=== PATIENT | male | born 1935 | race Caucasian/White ===

== ENCOUNTER 2018-01-24 13:56 | Inpatient (IN) ==
--- OUTSIDE RECORDS SUMMARY | 2018-01-24 14:21 | External Medical Summary ---
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
--- OUTSIDE RECORDS SUMMARY | 2018-01-24 14:22 | External Medical Summary ---
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
--- OUTSIDE RECORDS SUMMARY | 2018-01-24 14:22 | External Medical Summary ---
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
--- OUTSIDE RECORDS SUMMARY | 2018-01-24 14:22 | External Medical Summary ---
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 [id number] impairment ALLERGIES Unknown Allergies SOCIAL HISTORY No smoking Hx information available PLAN OF CARE Activity Details Follow Up prn Reason: Pending Test Urine Culture #[id number] VITAL SIGNS MEDICATIONS Unknown Medications RESULTS Name Result Date Reference Range CBC 2017-04-23 WBC 6.7 4.0-10.0 NE% 68.9 42.2-75.2 NE# 4.6 1.4-6.5 LY% 17.7 20.5-51.1 LY# 1.2 1.2-3.4 MO% 9.7 1.7-9.3 MO# 0.7 0.1-0.6 EO% 3.0 0.0-3.0 EO# 0.2 0.0-0.2 BA% 0.6 0.0-1.0 BA# 0.0 0.0-0.1 RBC 4.80 4.50-5.70 HGB 14.1 13.8-17.0 HCT 43.4 39.0-49.0 MCV 90.4 80.0-94.0 MCH 29.4 26.0-32.0 MCHC 32.5 32.0-36.0 RDW 12.8 11.5-15.5 PLT 227 130-400 MPV 9.4 9.0-12.1 SED RATE 2017-04-23 SED RATE 2 0-20 COMPREHENSIVE CHEM PROFILE 2017-04-23 GLUCOSE 123 60-99 BUN 19 8-23 CREATININE 0.9 0.5-1.2 CREATININE 0.9 0.5-1.2 eGFR If Am 98 >60 eGFR If Non Am 81 >60 TOTAL BILI 1.94 0.00-1.00 SODIUM 138 133-145 POTASSIUM 4.5 3.3-5.1 CHLORIDE 99 96-108 CO2 26 23-31 CALCIUM 9.4 8.7-10.3 AST/SGOT 19 5-40 ALT/SGPT 15 5-40 ALK PHOS 56 34-114 TOTAL PROTEIN 7.2 5.9-8.4 ALBUMIN 4.6 3.2-5.2 GLOBULIN 2.6 2.0-4.4 LIPID PROFILE 2017-04-23 CHOLESTEROL 172 50-200 TRIGLYCERIDE 101 30-150 HDL-DIRECT 62 35-55 LDL-DIRECT 107 0-99 CHOL/HDL 2.8 4.0-6.7 CRP 2017-04-23 CRP <0.5 0.0-5.0 Urine Dipstick/Microscopic for Symptoms 2017-04-23 COLOR D.YEL YELLOW-STRAW CLARITY CLEAR CLEAR LEUKOCYTES NEG NEGATIVE NITRITES NEG NEGATIVE pH 6 5-8 PROTEIN NEG NEGATIVE GLUCOSE 50 NEG KETONES NEG NEGATIVE UROBILINOGEN NORM 0 - 1.0 BILIRUBIN NEG NEGATIVE BLOOD NEG NEGATIVE SPEC GRAVITY 1.022 1.016-1.022 WBC 0-1 0-5/HPF RBC 0 0-2/HPF SQUAMOUS EPITH OCCASIONAL FEW/HPF BACTERIA 0 NONE/HPF CRYSTALS 0 NONE/HPF MUCOUS 0 NONE/HPF OTHER CASTS 0 NONE/LPF TSH Reflex to Free T4 2017-04-23 TSH 1.51 0.40-5.00 PROCEDURES Procedure Date Ordered Related Diagnosis Body Site CBC Apr 23, 2017 COMP PROFILE Apr 23, 2017 C REACTIVE PROTEIN Apr 23, 2017 SED RATE AUTOMA Apr 23, 2017 TSH Apr 23, 2017 LIPID PROFILE Apr 23, 2017 URINALYSIS Apr 23, 2017 URINE CULTURE Apr 23, 2017 IMMUNIZATIONS No Known Immunizations
--- OUTSIDE RECORDS SUMMARY | 2018-01-24 14:22 | External Medical Summary ---
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 [id number] impairment ALLERGIES No Known Allergies SOCIAL HISTORY Never Assessed PLAN OF CARE Activity Details Follow Up 3 Months Reason: VITAL SIGNS Weight 166 lbs 2017-08-22 Height 67 in 2017-08-22 BMI 26.00 kg/m2 2017-08-22 Blood pressure systolic 132 mm Hg 2017-08-22 Blood pressure diastolic 82 mm Hg 2017-08-22 MEDICATIONS Medication Instructions Dosage Frequency Start End Date Duration Status Date Aricept 5 mg Orally Once a 1 tablet at 24h Apr, DAYS Active day bedtime 2016 Namenda XR 14 Orally Once a 1 capsule 24h Apr, DAYS Active MG day 2016 RESULTS No Results PROCEDURES No Known procedures IMMUNIZATIONS No Known Immunizations MEDICAL (GENERAL) HISTORY Type Description Date Surgical History Herniorraphy Surgical History Colonoscopy
--- NOTE | 2018-01-24 14:23 | Emergency Department Report ---
General Adult HPI - General Chief complaint: Medical Clearance Stated complaint: [facility] Time Seen by Provider: 01/24/18 14:14 Source: patient, family Mode of arrival: ambulatory Limitations: no limitations - History of Present Illness HPI narrative: 82-year-old male presents to the emergency department with the chief complaint of a behavioral disturbance. Patient has been having gradual increasing behavioral disturbances over the past several weeks. Patient denies any pain or discomfort. Patient has had volatile behavior. Patient's family has contacted [facility] in order to help adjust the patient's medications and possibly improve his behavior. He was at home when his symptoms began. Symptoms have been persistent in nature since onset. No other complaints or associated symptoms. - Related Data Home Medications Medication Instructions Recorded Confirmed Donepezil [Aricept 5 mg] 5 mg PO HS 01/24/18 01/24/18 Memantine HCl [Namenda Xr] 14 mg PO DAILY 01/24/18 01/24/18 Allergies Allergy/AdvReac Type Severity Reaction Status Date / Time No Known Allergies Allergy Verified 01/24/18 14:21 Review of Systems Constitutional: Denies: fever, chills Eyes: Denies: eye pain, vision change ENT: Denies: ear pain, throat pain Cardiovascular: Denies: chest pain, palpitations Respiratory: Denies: cough, dyspnea Gastrointestinal: Denies: abdominal pain, nausea, vomiting, diarrhea Genitourinary: Denies: urgency, dysuria Musculoskeletal: Denies: back pain, arthralgia Integumentary: Denies: erythema, rash Neurological: Denies: headache, numbness Psychiatric: Denies: anxiety, depression, suicidal thoughts, homicidal thoughts Endocrine: Denies: polydipsia, polyuria Hematological/Lymphatic: Denies: easy bruising, lymphadenopathy Allergic/Immunologic: Denies: facial swelling, urticaria PFSH Patient Stated Medical History Dementia Yes Surgical History: Denied by patient. Family History: Reviewed and Noncontributory. - Social History Smoking status: Former smoker Substance use type: does not use Alcohol intake frequency: does not drink Physical Exam - Limitations Limitations: no limitations - General General appearance: alert, in no apparent distress - Normal Exams: Head:: Normocephalic without trauma Eyes:: Pupils are PERRLA w/ EOMI, No scleral icterus, irritation, or foreign bodies noted ENMT:: No facial trauma, nasal exudates, pharyngeal erythema, or exudates are noted Dental: No fractured, loose, or missing teeth noted Neck:: Full range of motion, without adenopathy, JVD, bruits or thyromegaly Chest/Respirations:: Clear all pugh, with good airflow, and symmetry bilaterally Cardiovascular:: Regular rate and rhythm, without murmur or gallop, Pulses 2+ all extremities, capillary refill, <2 seconds all extremities Abdomen:: Bowel sounds positive, soft, non-tender, non-distended, no hepatosplenomegaly, masses or bruits noted Lymphatic:: No lymphadenopathy, or lymphedema noted Musculoskeletal:: No tenderness, or deformity noted, good range of motion, all extremities Integumentary:: No rashes, hives, or bruising noted, hair and nails, without abnormality Neurological:: Patient is alert, and oriented, cranial nerves, motor/sensory/ cerebellar, exams w/o gross deficits, to observation Course Vital Signs Temperature 98.6 F 01/24/18 13:57 Pulse Rate 84 01/24/18 13:57 Respiratory Rate 18 01/24/18 13:57 Blood Pressure 162/77 H 01/24/18 13:57 Pulse Oximetry 96 01/24/18 13:57 Temperature 97.5 F 01/24/18 20:10 Pulse Rate 83 01/24/18 20:10 Respiratory Rate 18 01/24/18 20:10 Blood Pressure 155/86 H 01/24/18 20:10 Pulse Oximetry 98 01/24/18 20:10 Medical Decision Making - [facility] Narrative Medical decision making narrative: Patient is medically clear in the emergency department for further evaluation and treatment and a psychiatric facility. Patient is accepted to [facility] by Dr. Jami Holm. No further orders from accepting physician is in agreement with the current plan of management. Patient is admitted to [facility] in improved condition. Patient and family are in agreement with the current plan of management. - Differential Diagnosis depression, anxiety, dementia, metabolic disorder - Lab Data Result diagrams: 01/24/18 14:30 01/24/18 14:30 Lab Results 01/24/18 01/24/18 01/24/18 Range/Units 14:30 14:30 14:53 WBC 6.2 (4.5-11.0) T/MM3 RBC 4.65 (4.50-5.90) M/MM3 Hgb 13.7 (13.5-17.5) GM/DL Hct 42.7 (41-53) % MCV 91.8 (80-100) UM3 MCH 29.5 (26-34) UUG MCHC 32.1 (31-37) GM/DL RDW Std Deviation 43.3 (36.9-50.2) FL Plt Count 181 (130-400) T/MM3 MPV 9.5 (9.4-12.4) UM3 Immature Gran % (Auto) 0.2 (0.0-0.5) % Neut % (Auto) 67.3 H (33-66) % Lymph % (Auto) 21.2 L (23-45) % [place] % (Auto) 7.4 (0-9.0) % Eos % (Auto) 2.9 (0-4) % Baso % (Auto) 1.0 (0-2) % Neut # (Auto) 4.2 (1.8-7.7) T/MM3 Lymph # (Auto) 1.3 (1-4.8) T/MM3 [place] # (Auto) 0.5 (0-0.8) T/MM3 Eos # (Auto) 0.2 (0-0.5) T/MM3 Baso # (Auto) 0.1 (0-0.2) T/MM3 Abs Immat Gran (auto) 0.01 (0.00-0.03) T/MM3 Turbidity < 20 (0-20) Sodium 144 (134-144) MEQ/L Potassium 3.9 (3.6-5) MEQ/L Chloride 104 (98-107) MEQ/L Carbon Dioxide 25 (22-30) MEQ/L Anion Gap 15 (5-15) meq/L BUN 18.0 (9-20) MG/DL Creatinine 1.1 (0.8-1.5) mg/dL GFR Calculation 64 BUN/Creatinine Ratio 16 (6-26) RATIO Glucose 97 (75-110) MG/DL Calculated Osmolality 279 (261-280) MOSM/KG Calcium 9.2 (8.4-10.2) MG/DL Total Bilirubin 1.50 H (0.20-1.30) MG/DL Icterus Index < 2 (0-7) AST 23 (17-59) U/L ALT 19 (1-50) U/L Alkaline Phosphatase 52 (38-126) U/L Troponin I < 0.012 (0-0.12) ng/ml Total Protein 6.9 (6.3-8.2) g/dL Albumin 4.4 (3.5-5.0) g/dL Globulin 2.5 (2.4-3.6) G/DL Albumin/Globulin Ratio 1.8 (1.1-2.2) RATIO Specimen Hemolysis < 15 (0-25) Ur Collection Type Urine, void-cc/notcc Urine Color Yellow (YELLOW) Urine Clarity Clear Urine pH 5.5 (5.0-8.0) Ur Specific [place] >=1.030 H (1.015-1.025) Urine Protein Negative (NEGATIVE) Urine Glucose (UA) Negative (NEGATIVE) Urine Ketones Negative (NEGATIVE) Urine Occult Blood Negative (NEGATIVE) Urine Nitrate Negative (NEGATIVE) Urine Bilirubin Negative (NEGATIVE) Urine Urobilinogen 0.2 (NORMAL) EU/DL Ur Leukocyte Esterase Negative (NEGATIVE) Urinalysis Comment Microscopic not ind. - Radiology Data CXR - No acute processes. - EKG Data EKG #1 EKG results narrative: Sinus rhythm with first-degree AV block. No STEMI. 70 beats per minute. Disposition Clinical Impression: Behavioral disorder Disposition: 64 To [facility] Condition: Stable Time of Disposition: 16:00 - Seen By: physician
--- NOTE | 2018-01-24 14:38 | XRay Report ---
Indication: med. clearance PROCEDURE: XR chest 1V: Encounter: Initial Comparison: None FINDINGS: The lungs are clear. There is no abnormal airspace opacity, pleural effusion or pneumothorax identified. The heart size, pulmonary vasculature and mediastinum are within normal limits. No significant skeletal abnormality is seen. IMPRESSION: No acute cardiopulmonary abnormality. .
[2018-01-24] MEDS: LORazepam 0.5 MG TABLET PO PRN (15:35)
[2018-01-24] MEDS ORDERED: HALOPERIDOL 5 MG/ML INJECTION IM PRN (15:46)
[2018-01-24] MEDS ORDERED: HALOPERIDOL 0.5 MG TABLET PO PRN (15:46)
[2018-01-24 16:26] VITALS: BMI 25.0
[2018-01-24] MEDS: DONEPEZIL 5 MG TABLET PO SCH (20:18)
[2018-01-25] MEDS: MEMANTINE 10 MG TABLET PO SCH (08:54)
--- NOTE | 2018-01-25 11:05 | History & Physical Report ---
History of Present Illness Date: 01/25/18 Chief complaint: dementia with behavioral distrubance HPI: Familia Tim is a very pleasant 82-year-old male patient of Dr. Ed. Alberto who was brought to [facility] ED on 01/24/18 by his family for evaluation of behavioral disturbances. At the time of evaluation, Familia does not know why he is in the hospital but is alert and orientated to person, place and time. Prior medical records were reviewed and contributed to the history. Reportedly, he has been having gradually increasing behaviors over the past several weeks with an overall gradual decline in functional abilities over the past 10 months. Family reported that he has had some volatile behaviors and has been verbally abusive as well as easily angers with some pacing. Documentation indicates that he believes that his was having parties at night and inviting med over to have sex with her. Evaluation in the ED was unremarkable. He was accepted into [facility] unit for further evaluation and treatment. The hospitalist service was consulted for medical management. Review of Systems All systems PM: 10-point ROS was reviewed, no additional remarkable complaints except - Constitutional Constitutional: Absent: anorexia, chills, fatigue, fever(s), weakness - EENMT Eyes: Absent: change in vision, loss of vision Ears: Absent: ear pain Balance: Absent: falling to one side Nose: Absent: nosebleeds Mouth/Throat: Absent: sore throat, changes in swallowing - Cardiovascular Cardiovascular: Absent: chest pain, palpitations, syncope, dyspnea on exertion, orthopnea, edema Rhythm: Present: regular rhythm Vascular: Absent: pallor of an extermity, pedal edema, unilateral swelling - Respiratory Respiratory: Absent: cough, dyspnea, dyspnea on exertion, wheezing - Gastrointestinal Gastrointestinal: Absent: abdominal pain, diarrhea, melena, nausea, vomiting - Genitourinary Genitourinary: Absent: dysuria, flank pain, hematuria - Musculoskeletal Musculoskeletal: Absent: abnormal gait, back pain, deformity, muscle weakness - Integumentary/Breasts Integumentary: Absent: rash - Neurological Neurological: Present: confusion, memory loss. Absent: abnormal gait, dizziness , focal weakness, frequent falls, vertigo, weakness - Psychiatric Psychiatric: Present: behavioral changes, paranoia. Absent: anxiety, depression - Endocrine Endocrine: Absent: heat intolerance, palpitations - Hematologic/Lymphatic Hematologic/Lymphatic: Absent: easy bruising - Allergic/Immunologic Allergic/Immunologic: Absent: seasonal rhinorrhea Past Medical History Medical History Updates: Dementia. Surgical History: Hernia repair. Colonscopy. Family History Updates: Father - , leukemia. Mother - , age 94 , suspected of "old age". Family History: As Above - Social History Smoking status: Former smoker Substance use type: does not use Alcohol intake frequency: does not drink Housing: house Household members: other (reports he lives alone as his is in a facility.) Current occupational status: retired Current residence: Apartment/Private Home Social history: PCP - Dr. Jose Alberto. Medications Home Medications Medication Instructions Recorded Confirmed Type Donepezil [Aricept 5 mg] 5 mg PO HS 01/24/18 01/24/18 History Memantine HCl [Namenda Xr] 14 mg PO DAILY 01/24/18 01/24/18 History Allergies Allergy/AdvReac Type Severity Reaction Status Date / Time No Known Allergies Allergy Verified 01/24/18 14:21 Exam Vital Signs: Temperature 97.6 F 01/25/18 07:00 Pulse Rate 89 01/25/18 09:45 Respiratory Rate 16 01/25/18 09:45 Blood Pressure 149/92 H 01/25/18 07:00 Pulse Oximetry 97 01/25/18 09:45 Height/Weight/BMI: Height 5 ft 7 in Weight 159 lb 13.362 oz Body Mass Index 25.0 Comments: Patient seen while sitting in the day room, drinking a cup of coffee. - Constitutional Present: no acute distress, well nourished, well developed, cooperative - Routine HEENT Exam Head: Present: normocephalic, atraumatic Eye: Present: PERRL. Absent: conjunctival icterus ENT: Present: mucous membranes moist, oropharynx clear - Routine Neck Exam Present: supple, full ROM, trachea midline - Routine Chest/Breast/Axilla Exam Chest wall: Absent: pacemaker - Routine Respiratory Exam Present: CTA bilaterally. Absent: respiratory distress, wheezes - Routine Cardiovascular Exam Present: RRR, S1, S2, murmur (2/6 systolic) Comments: Patient unaware if heart murmur is new. - Routine Abdominal Exam Present: soft, normoactive bowel sounds, non distended, non tender - Routine Extremities Exam Present: no edema, non tender, full ROM, pulses intact - Routine Back/Spine/Pelvis Exam Back/Spine: Present: full ROM. Absent: vertebral tenderness - Routine Skin Exam Present: intact, dry, warm Comments: Afebrile. - Routine Neurological Exam Present: alert, oriented X3, moving all extremities, hearing grossly intact, normal speech - Routine Psychiatric Exam Present: normal affect, cooperative Results - Labs CBC & Chem 7: 01/24/18 14:30 01/24/18 14:30 Assessment and Plan Assessment and Plan: Assessment: Dementia with behavioral disturbance. Heart murmur, 2/6 systolic - unspecified. Plan - 01/25/18: Agree with admission to [facility] for further psychiatric evaluation and treatment. Hospitalist service consulted for medical management. Patient is reportedly a very healthy 82 year old. Will monitor blood pressure closely. Labs on admission were unremarkable. TSH from 04/22/17 was 1.51. Will complete [facility] admission evaluation and obtain TSH and B12. 2/6 systolic murmur noted on exam. Patient denies known history of murmur and prior medical records denied murmur. Patient is medically stable and asymptomatic. Would recommend further evaluation with PCP following discharge from [facility]. Given behavioral changes, will also obtain CT. CXR unremarkable. Continue home medications. Provide safe and supportive environment. Upon discharge, patient's care will be returned to his PCP, Dr. Alberto. - Time spent with patient Time with patient PN: 50 minutes - Physician Narrative Physician: other (Dr. Dow) Narrative: Date: 01/25/18 Time: 1432 Pt wondering why he can't go home. Pt is medically stable, will follow along with psych for medical management and re-start home meds. Lungs CTAB. Hospital Course Summary Disclaimer: The visit summary below is not to be considered part of the above Progress Note. Hospital Course: Plan - 01/25/18: Agree with admission to [facility] unit for further psychiatric evaluation and treatment. Hospitalist service consulted for medical management. Patient is reportedly a very healthy 82 year old. Will monitor blood pressure closely. Labs on admission were unremarkable. TSH from 04/22/17 was 1.51. Will complete [facility] admission evaluation and obtain TSH and B12. Given behavioral changes, will also obtain CT. CXR unremarkable. 2/6 systolic murmur noted on exam. Patient denies known history of murmur and prior medical records denied murmur. Patient is medically stable and asymptomatic. Would recommend further evaluation with PCP following discharge from [facility]. Continue home medications. Provide safe and supportive environment. Upon discharge, patient's care will be returned to his PCP, Dr. Alberto.
--- NOTE | 2018-01-25 11:10 | 24 Hour Neuropsychiatic Eval ---
Date of Admission: 01/24/18 15:16 Chief complaint: "I dont know why Im here" History of Present Illness: HPI: 82 Y/O CM BB family for increasing memory impairment and agitation. Family reports the pt has been verbally aggressive and delusional at times believing his is cheating on him. Family reports a functional decline in cognition over the last twelve months. On face to face the pt is pleasant but confused. He is oriented x 2. he states he is not sure why he is here. he states his is living with his daughter due to health reasons and "I think they are trying to get rid of me". STRESSORS: has been having health issues. Believes his family is trying to get rid of him. PSYCH ROS: Pt reports dealing with some depression but feels it is mild and related to his current situation. He reprots he worries about what will happen with his and him. He denies any jolly or psychosis. PAST PSYCH: Pt is not a good historian but he denies any past psych care. he is currently on Aricept and Namenda. SUBSTANCE ABUSE: Denies SOCIAL HX: Born in [place]. HS grad with some college. 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 [employer] Patient Stated Medical History Dementia Yes Cataracts Yes Bronchitis Yes: November 2017 Surgical History: Denied by patient. - Social History Smoking status: Former smoker Substance use type: does not use Alcohol intake frequency: does not drink Review of Systems - Psychiatric Psychiatric: Present: anxiety, behavioral changes, depression, difficulty concentrating Mental Status Exam Vitals: Last Vital Signs Temp 97.6 F 01/25/18 07:00 Pulse 89 01/25/18 09:45 Resp 16 01/25/18 09:45 BP 149/92 H 01/25/18 07:00 Pulse Ox 97 01/25/18 09:45 Height: 1.7 m Weight: 72.5 kg - Mental Status Exam Muscle Strength/Tone: Normal Dressing: Casual Grooming: Good Attitude: Cooperative Motor Activity: Normal Eye Contact: Good Speech: Normal Volume: Normal Rhythm: Appropriate Rhythm Orientation: Oriented to person, Oriented to place Mood: Depressed Affect: Relaxed Rate of Thoughts: Appropriate Rate Thought Organization: Confused Associations: Intact Abstract Reasoning: Poor abstract reasoning Thought Content: Hopelessness Perception/Psychotic: Perception Normal Language: Naming Intact Fund of Knowledge: Poor fund of knowledge Memory: Poor-immediate, Poor-recent Suicidal Ideation: None Homicidal Ideation: None Insight: Poor Judgement: Poor Impulse Control: Poor - Laboratory Result Diagrams: 01/24/18 14:30 01/24/18 14:30 Assessment and Plan (1) Major neurocognitive disorder due to Alzheimer's disease, possible Problem details: with behavioral disturbance Current visit: Yes Status: Acute Continue to evaluate and stabilize. Will continue current meds and observe patient. Consider adding Depakote to help with behaviors
[2018-01-25] MEDS: LORazepam 0.5 MG TABLET PO PRN (13:29)
[2018-01-25] MEDS: DONEPEZIL 5 MG TABLET PO SCH (20:02)
[2018-01-26] MEDS: MEMANTINE 10 MG TABLET PO SCH (08:19)
--- NOTE | 2018-01-26 08:56 | Neuropsych Progress Note ---
[facility] Subjective Date: 01/26/18 - Sujective/Severity of Illness Medications: Donepezil HCl (Aricept 5 Mg) 5 mg PO HS [facility] Last Admin: 01/25/18 20:02 Dose: 5 mg Haloperidol (Haldol) 0.5 mg PO Q6H PRN PRN Reason: Extreme agitation Haloperidol Lactate (Haldol) 0.5 mg IM Q6H PRN PRN Reason: Extreme agitation Lorazepam (Ativan) 0.5 mg PO Q6H PRN PRN Reason: Extreme agitation Last Admin: 01/25/18 13:29 Dose: 0.5 mg Lorazepam (Ativan Inj) 0.5 mg IM Q6H PRN PRN Reason: Extreme agitation Memantine (Namenda) 10 mg PO DAILY [facility] Last Admin: 01/26/18 08:19 Dose: 10 mg Subjective: Pt seen and chart examined. Nursing reports pt is doing well. Pleasant but confused. Oriented x 2. Sleeping and eating well. On face to face the pt states he is doing well. He states his family "abandoned me". He reports he feels his mood is stable and he denies any S/I. Tolerating meds Start Time: 08:30 Stop Time: 08:45 Mental Status Exam Vitals: Last Vital Signs Temp 98.7 F 01/25/18 19:49 Pulse 82 01/25/18 19:49 Resp 18 01/25/18 19:49 BP 122/67 01/25/18 19:49 Pulse Ox 97 01/25/18 19:49 Height: 1.7 m Weight: 72.5 kg - Mental Status Exam Muscle Strength/Tone: Normal Dressing: Casual Grooming: Good Attitude: Cooperative Motor Activity: Normal Eye Contact: Good Speech: Normal Volume: Normal Rhythm: Appropriate Rhythm Orientation: Oriented to person, Oriented to place Mood: Depressed Rate of Thoughts: Appropriate Rate Thought Organization: Confused Associations: Intact Abstract Reasoning: Poor abstract reasoning Thought Content: Hopelessness Perception/Psychotic: Perception Normal Language: Naming Intact Fund of Knowledge: Poor fund of knowledge Memory: Poor-immediate, Poor-recent Suicidal Ideation: None Homicidal Ideation: None Insight: Poor Judgement: Poor Impulse Control: Poor - Laboratory Result Diagrams: 01/24/18 14:30 01/24/18 14:30 Assessment and Plan (1) Major neurocognitive disorder due to Alzheimer's disease, possible Problem details: with behavioral disturbance Current visit: Yes Status: Acute Hospital Course Summary Disclaimer: The visit summary below is not to be considered part of the above Progress Note. Hospital Course: Plan - 01/25/18: Agree with admission to [facility] unit for further psychiatric evaluation and treatment. Hospitalist service consulted for medical management. Patient is reportedly a very healthy 82 year old. Will monitor blood pressure closely. Labs on admission were unremarkable. TSH from 04/22/17 was 1.51. Will complete [facility] admission evaluation and obtain TSH and B12. Given behavioral changes, will also obtain CT. CXR unremarkable. 2/6 systolic murmur noted on exam. Patient denies known history of murmur and prior medical records denied murmur. Patient is medically stable and asymptomatic. Would recommend further evaluation with PCP following discharge from [facility]. Continue home medications. Provide safe and supportive environment. Upon discharge, patient's care will be returned to his PCP, Dr. Alberto. 01/26/18 Psych note- Pt remains pleasant but confused. Continue current care
[2018-01-26] MEDS: DONEPEZIL 5 MG TABLET PO SCH ×2 (19:27→20:55)
[2018-01-27] MEDS: MEMANTINE 10 MG TABLET PO SCH (08:34)
--- NOTE | 2018-01-27 11:58 | Neuropsych Progress Note ---
[facility] Subjective Date: 01/27/18 - Sujective/Severity of Illness Medications: Donepezil HCl (Aricept 5 Mg) [address] [facility] Last Admin: 01/26/18 20:55 Dose: Not Given Haloperidol (Haldol) 0.5 mg PO Q6H PRN PRN Reason: Extreme agitation Haloperidol Lactate (Haldol) 0.5 mg IM Q6H PRN PRN Reason: Extreme agitation Lorazepam (Ativan) 0.5 mg PO Q6H PRN PRN Reason: Extreme agitation Last Admin: 01/25/18 13:29 Dose: 0.5 mg Lorazepam (Ativan Inj) 0.5 mg IM Q6H PRN PRN Reason: Extreme agitation Memantine (Namenda) [address] [facility] Last Admin: 01/27/18 08:34 Dose: 10 mg Subjective: Patient seen and chart reviewed. Case discussed with treatment team. On interview, patient is pleasant and cooperative. He believes he is here because his son had to go back to the [facility] for work and dropped him off. He describes his mood as "pretty good" most of the time, but states that he worries a lot about his and has "probably" always been a worrier. He denies feeling depressed. When specifically asked about his relationship with his , he does state that he had concerns that she was having an affair " with someone the family knew" (he declined to elaborate further) but says that "he's willing to forget about that." He does not have insight into how this has caused problems prior to admission. He feels that he doesn't have any memory problems and was functioning well at home, but understands that his family feels he needs extra assistance and is willing to accept help. Patient denies any SI, HI or AVH. Patient denies any adverse side effects related to psychotropic medications. Nursing staff report patient has been overall cooperative, though he frequently asks why he is in the hospital, when he will leave, etc. and has made multiple comments about being abandoned by his family. Patient has been adherent with medications and has been participating well in group. Patient slept 9.5 hours overnight. VSS. Patient is eating well. Psychotropic PRNs required in the past 24 hours: none. SLUMS . Start Time: 11:00 Stop Time: 11:20 Mental Status Exam Vitals: Last Vital Signs Temp 97.8 F 01/27/18 08:00 Pulse 80 01/27/18 08:00 Resp 20 01/27/18 08:00 BP 135/88 01/27/18 08:00 Pulse Ox 98 01/27/18 08:00 Height: 1.7 m Weight: 72.5 kg - Mental Status Exam Muscle Strength/Tone: Normal Dressing: Casual Grooming: Good Attitude: Cooperative Motor Activity: Normal Eye Contact: Good Speech: Normal Volume: Normal Rhythm: Appropriate Rhythm Orientation: Oriented to person, Oriented to place Mood: Anxious Affect: Anxious Rate of Thoughts: Appropriate Rate Thought Organization: Confused Associations: Intact Abstract Reasoning: Poor abstract reasoning Thought Content: Delusions (about 's infidelity), Ruminations Perception/Psychotic: Other (Delusions as above, denies AVH and none apparent) Language: Naming Intact Fund of Knowledge: Poor fund of knowledge Memory: Poor-immediate, Poor-recent Suicidal Ideation: Denies Homicidal Ideation: Denies Insight: Poor Judgement: Poor Impulse Control: Other (Limited) - Laboratory Result Diagrams: 01/24/18 14:30 01/24/18 14:30 Laboratory Results - last 24 hr 01/26/18 08:05 Vitamin B12 286 Assessment and Plan (1) Major neurocognitive disorder due to Alzheimer's disease, possible Problem details: with behavioral disturbance Current visit: Yes Status: Acute Will contact family re: starting antidepressant, antipsychotic to target delusions. Will order TRISTON to better understand placement needs. Will order Vitamin B12 IM 1000mcg x 3 days, then weekly x 1 month, then monthly thereafter. Hospital Course Summary Disclaimer: The visit summary below is not to be considered part of the above Progress Note. Hospital Course: Plan - 01/25/18: Agree with admission to [facility] unit for further psychiatric evaluation and treatment. Hospitalist service consulted for medical management. Patient is reportedly a very healthy 82 year old. Will monitor blood pressure closely. Labs on admission were unremarkable. TSH from 04/22/17 was 1.51. Will complete [facility] admission evaluation and obtain TSH and B12. Given behavioral changes, will also obtain CT. CXR unremarkable. 2/6 systolic murmur noted on exam. Patient denies known history of murmur and prior medical records denied murmur. Patient is medically stable and asymptomatic. Would recommend further evaluation with PCP following discharge from [facility]. Continue home medications. Provide safe and supportive environment. Upon discharge, patient's care will be returned to his PCP, Dr. Alberto. 01/25/18 Psych: Continue home medications. 01/26/18 Psych note- Pt remains pleasant but confused. Continue current care 01/27/18 Psych: Will contact family re: starting antidepressant, antipsychotic to target delusions. Will order TRISTON to better understand placement needs. Will order Vitamin B12 IM 1000mcg x 3 days, then weekly x 1 month, then monthly thereafter.
[2018-01-27] MEDS: DONEPEZIL 5 MG TABLET PO SCH (21:20)
[2018-01-27] MEDS: MIRTAZAPINE 15 MG TABLET PO SCH (21:20)
[2018-01-28] MEDS: CYANOCOBALAMIN (B-12) 1,000mcg/ml INJECTION IM SCH (08:55)
[2018-01-28] MEDS: MEMANTINE 10 MG TABLET PO SCH (08:55)
--- NOTE | 2018-01-28 14:57 | CT Scan Report ---
Indication: dementia with behaviors PROCEDURE: CT head/brain wo con: Encounter: Initial Comparison: None Technique: Axial CT images through the head were performed without contrast. Iterative Reconstruction dose reducing technique was utilized. FINDINGS: Moderate atrophy. The ventricles are of normal size, shape, and contour for the patient's age. There are numerous areas of low attenuation in the white matter which most likely represent changes from chronic microvascular ischemia. Old lacunar infarct versus prominent perivascular space in the left external capsule region. The brainstem, cerebellum, and cerebral hemispheres otherwise have a normal morphology and CT attenuation. There is no evidence of midline displacement. No hemorrhage, signs of acute territorial stroke, mass effect, mass lesions, or edema is evident. The visualized portions of the skull base, midface, and calvarium demonstrate no abnormality. The paranasal sinuses are well aerated and free of significant disease. The tympanic and mastoid cavities appear normal. IMPRESSION: No acute intracranial abnormality or hemorrhage. Atrophy and small vessel ischemia, mildly advanced for age. .
--- NOTE | 2018-01-28 17:19 | Neuropsych Progress Note ---
[facility] Subjective Date: 01/28/18 - Sujective/Severity of Illness Medications: Cyanocobalamin (Vit. B-12) 1,000 mcg IM DAILY [facility] Stop: 01/30/18 09:01 Last Admin: 01/28/18 08:55 Dose: 1,000 mcg Donepezil HCl (Aricept 5 Mg) 5 mg PO [facility] Last Admin: 01/27/18 21:20 Dose: 5 mg Haloperidol (Haldol) 0.5 mg PO Q6H PRN PRN Reason: Extreme agitation Haloperidol Lactate (Haldol) 0.5 mg IM Q6H PRN PRN Reason: Extreme agitation Lorazepam (Ativan) 0.5 mg PO Q6H PRN PRN Reason: Extreme agitation Last Admin: 01/25/18 13:29 Dose: 0.5 mg Lorazepam (Ativan Inj) 0.5 mg IM Q6H PRN PRN Reason: Extreme agitation Memantine (Namenda) 10 mg PO DAILY [facility] Last Admin: 01/28/18 08:55 Dose: 10 mg Mirtazapine (Remeron) 7.5 mg PO [facility] Last Admin: 01/27/18 21:20 Dose: 7.5 mg Risperidone (Risperdal) 0.25 mg PO 18 [facility] Last Admin: 01/27/18 17:33 Dose: 0.25 mg Subjective: Patient seen and chart reviewed. Case discussed with treatment team. On interview, patient is pleasant and cooperative. He knows he is in the hospital and would like to be discharged, but otherwise is pleasantly confused. He reports that his mood is good and he feels well physically. Patient denies any SI, HI or AVH. Patient denies any adverse side effects related to psychotropic medications. Nursing staff report patient has been overall cooperative, though he frequently asks why he is in the hospital, when he will leave, etc. and has made multiple comments about being abandoned by his family. Patient has been adherent with medications and has been participating well in group. Patient slept well overnight. VSS. Patient is eating well. Psychotropic PRNs required in the past 24 hours: none. Start Time: 16:00 Stop Time: 16:20 Mental Status Exam Vitals: Last Vital Signs Temp 97.8 F 01/28/18 16:00 Pulse 86 01/28/18 16:00 Resp 16 01/28/18 16:00 BP 129/81 01/28/18 16:00 Pulse Ox 98 01/28/18 16:00 Height: 1.7 m Weight: 72.5 kg - Mental Status Exam Muscle Strength/Tone: Normal Dressing: Casual Grooming: Good Attitude: Cooperative Motor Activity: Normal Eye Contact: Good Speech: Normal Volume: Normal Rhythm: Appropriate Rhythm Orientation: Oriented to person, Oriented to place Mood: Neutral Affect: Relaxed (during interview, at times becomes more anxious on the unit) Rate of Thoughts: Appropriate Rate Thought Organization: Confused Associations: Intact Abstract Reasoning: Poor abstract reasoning Thought Content: Delusions (about 's infidelity), Ruminations Perception/Psychotic: Other (Delusions as above, denies AVH and none apparent) Language: Naming Intact Fund of Knowledge: Poor fund of knowledge Memory: Poor-immediate, Poor-recent Suicidal Ideation: Denies Homicidal Ideation: Denies Insight: Poor Judgement: Poor Impulse Control: Other (Limited) - Laboratory Result Diagrams: 01/24/18 14:30 01/24/18 14:30 Laboratory Results - last 24 hr 01/28/18 07:12 Triglycerides 92 Cholesterol 180 LDL Cholesterol, Calc 104.6 VLDL Cholesterol 18.4 HDL Cholesterol 57 Cholesterol/HDL Ratio 3.2 Assessment and Plan (1) Major neurocognitive disorder due to Alzheimer's disease, possible Problem details: with behavioral disturbance Current visit: Yes Status: Acute Continue current care, monitoring response to low-dose Risperdal. Risks/ benefits of antipsychotic use in dementia discussed with DPOA prior to initiation and informed consent obtained. Hospital Course Summary Disclaimer: The visit summary below is not to be considered part of the above Progress Note. Hospital Course: Plan - 01/25/18: Agree with admission to [facility] unit for further psychiatric evaluation and treatment. Hospitalist service consulted for medical management. Patient is reportedly a very healthy 82 year old. Will monitor blood pressure closely. Labs on admission were unremarkable. TSH from 04/22/17 was 1.51. Will complete [facility] admission evaluation and obtain TSH and B12. Given behavioral changes, will also obtain CT. CXR unremarkable. 2/6 systolic murmur noted on exam. Patient denies known history of murmur and prior medical records denied murmur. Patient is medically stable and asymptomatic. Would recommend further evaluation with PCP following discharge from [facility]. Continue home medications. Provide safe and supportive environment. Upon discharge, patient's care will be returned to his PCP, Dr. Alberto. 01/25/18 Psych: Continue home medications. 01/26/18 Psych note- Pt remains pleasant but confused. Continue current care 01/27/18 Psych: Will contact family re: starting antidepressant, antipsychotic to target delusions. Will order TRISTON to better understand placement needs. Will order Vitamin B12 IM 1000mcg x 3 days, then weekly x 1 month, then monthly thereafter. 01/28/18 Psych: Continue current care, monitoring response to low-dose Risperdal. Risks/benefits of antipsychotic use in dementia discussed with DPOA prior to initiation and informed consent obtained.
[2018-01-28] MEDS: DONEPEZIL 5 MG TABLET PO SCH (20:48)
[2018-01-28] MEDS: MIRTAZAPINE 15 MG TABLET PO SCH (20:48)
[2018-01-29] MEDS: MEMANTINE 10 MG TABLET PO SCH (08:38)
[2018-01-29] MEDS: CYANOCOBALAMIN (B-12) 1,000mcg/ml INJECTION IM SCH (08:38)
[2018-01-29] MEDS: MIRTAZAPINE 15 MG TABLET PO SCH ×2 (19:50→22:29)
[2018-01-29] MEDS: DONEPEZIL 5 MG TABLET PO SCH ×2 (19:50→22:29)
[2018-01-30] MEDS: CYANOCOBALAMIN (B-12) 1,000mcg/ml INJECTION IM SCH (10:03)
[2018-01-30] MEDS: MEMANTINE 10 MG TABLET PO SCH (10:03)
--- NOTE | 2018-01-30 12:18 | Neuropsych Progress Note ---
[facility] Subjective Date: 01/30/18 - Sujective/Severity of Illness Medications: Donepezil HCl (Aricept 5 Mg) 5 mg PO [facility] Last Admin: 01/29/18 22:29 Dose: Not Given Haloperidol (Haldol) 0.5 mg PO Q6H PRN PRN Reason: Extreme agitation Haloperidol Lactate (Haldol) 0.5 mg IM Q6H PRN PRN Reason: Extreme agitation Lorazepam (Ativan) 0.5 mg PO Q6H PRN PRN Reason: Extreme agitation Last Admin: 01/25/18 13:29 Dose: 0.5 mg Lorazepam (Ativan Inj) 0.5 mg IM Q6H PRN PRN Reason: Extreme agitation Magnesium Hydroxide (Mom) 30 ml PO DAILY PRN PRN Reason: Constipation Last Admin: 01/28/18 17:36 Dose: 30 ml Memantine (Namenda) 10 mg PO DAILY [facility] Last Admin: 01/30/18 10:03 Dose: 10 mg Mirtazapine (Remeron) 7.5 mg PO [facility] Last Admin: 01/29/18 22:29 Dose: Not Given Risperidone (Risperdal) 0.25 mg PO 18 [facility] Last Admin: 01/29/18 17:50 Dose: 0.25 mg Subjective: Patient seen and chart reviewed. Case discussed with treatment team. On interview, patient is pleasant and cooperative. He knows he is in the hospital and would like to be discharged, but otherwise is pleasantly confused. He reports that his mood is good and he feels well physically. He is redirectable when asking about discharge. I had to specifically ask him multiple times about his relationship with his and specifically concerns about infidelity. He says, "I decided to forget about it. There's nothing I can do about it." and he denies current distress about the situation. Patient denies any SI, HI or AVH. Patient denies any adverse side effects related to psychotropic medications. Nursing staff report patient has mostly been pleasant and cooperative, though he does have some short-lived delusions in times of stress (became anxious about not being able to go home, made a comment about working for the government and his life being in shambles). This was not persistent in nature. Patient has been adherent with medications and has been participating in group. Patient slept well overnight. VSS. Patient is eating well. Psychotropic PRNs required in the past 24 hours: none. Start Time: 12:20 Stop Time: 12:40 Mental Status Exam Vitals: Last Vital Signs Temp 97.6 F 01/30/18 08:00 Pulse 99 01/30/18 08:00 Resp 16 01/30/18 08:00 BP 156/86 H 01/30/18 08:00 Pulse Ox 98 01/30/18 08:00 Height: 1.7 m Weight: 72.5 kg - Mental Status Exam Muscle Strength/Tone: Normal Dressing: Casual Grooming: Good Attitude: Cooperative Motor Activity: Normal Eye Contact: Good Speech: Normal Volume: Normal Rhythm: Appropriate Rhythm Sensory: Alert Orientation: Oriented to person, Oriented to place Mood: Neutral (mild mood lability on unit, relaxed during interview) Rate of Thoughts: Delayed Thought Organization: Confused Associations: Intact Abstract Reasoning: Poor abstract reasoning Thought Content: Delusions (about 's infidelity, decreased in intensity since admission), Ruminations (intermittent) Perception/Psychotic: Other (Delusions as above, denies AVH and none apparent) Language: Naming Intact Fund of Knowledge: Poor fund of knowledge Memory: Poor-immediate, Poor-recent Suicidal Ideation: Denies Homicidal Ideation: Denies Insight: Poor Judgement: Poor Impulse Control: Other (Limited) - Laboratory Result Diagrams: 01/24/18 14:30 01/24/18 14:30 Assessment and Plan (1) 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 B12 deficiency Current visit: Yes Status: Acute Increase mirtazapine to 15mg PO q HS and increase Risperdal to 0.5mg PO daily at dinnertime. Hospital Course Summary Disclaimer: The visit summary below is not to be considered part of the above Progress Note. Hospital Course: Plan - 01/25/18: Agree with admission to [facility] for further psychiatric evaluation and treatment. Hospitalist service consulted for medical management. Patient is reportedly a very healthy 82 year old. Will monitor blood pressure closely. Labs on admission were unremarkable. TSH from 04/22/17 was 1.51. Will complete [facility] admission evaluation and obtain TSH and B12. Given behavioral changes, will also obtain CT. CXR unremarkable. 2/6 systolic murmur noted on exam. Patient denies known history of murmur and prior medical records denied murmur. Patient is medically stable and asymptomatic. Would recommend further evaluation with PCP following discharge from [facility]. Continue home medications. Provide safe and supportive environment. Upon discharge, patient's care will be returned to his PCP, Dr. Alberto. 01/25/18 Psych: Continue home medications. 01/26/18 Psych note- Pt remains pleasant but confused. Continue current care 01/27/18 Psych: Will contact family re: starting antidepressant, antipsychotic to target delusions. Will order TRISTON to better understand placement needs. Will order Vitamin B12 IM 1000mcg x 3 days, then weekly x 1 month, then monthly thereafter. 01/28/18 Psych: Continue current care, monitoring response to low-dose Risperdal. Risks/benefits of antipsychotic use in dementia discussed with DPOA prior to initiation and informed consent obtained. 01/30/18 Psych: Increase mirtazapine to 15mg PO q HS and increase Risperdal to 0.5mg PO daily at dinnertime.
--- NOTE | 2018-01-30 13:23 | Progress Note ---
- Date 01/30/18 Subjective: Familia is seen today while sitting in the day room, talking with another patient. He continues to be confused as to why he is here and feels as though his kids abandoned him. He denies any complaints or concerns. Appetite is stable and bowels are moving. Nursing reports that he continues to be cooperative with cares but is eager for discharge. Objective Vital signs: Temperature 97.6 F 01/30/18 08:00 Pulse Rate 99 01/30/18 08:00 Respiratory Rate 16 01/30/18 08:00 Blood Pressure 156/86 H 01/30/18 08:00 Pulse Oximetry 98 01/30/18 08:00 Height/Weight/BMI: Height 5 ft 7 in Weight 159 lb 13.362 oz Body Mass Index 25.0 - Constitutional Present: no acute distress, well nourished, well developed, cooperative - Routine HEENT Exam Head: Present: normocephalic, atraumatic Eye: Present: PERRL. Absent: conjunctival icterus ENT: Present: mucous membranes moist, oropharynx clear - Routine Respiratory Exam Present: CTA bilaterally. Absent: respiratory distress, wheezes - Routine Cardiovascular Exam Present: RRR, S1, S2, murmur - Routine Abdominal Exam Present: soft, normoactive bowel sounds, non distended - Routine Extremities Exam Present: no edema, full ROM, pulses intact - Routine Back/Spine/Pelvis Exam Back/Spine: Present: full ROM. Absent: vertebral tenderness - Routine Musculoskeletal Exam Musculoskeletal: Present: no clubbing or cyanosis, no tenderness - Routine Skin Exam Present: intact, dry, warm - Routine Neurological Exam Present: alert, oriented X3, moving all extremities, hearing grossly intact, normal speech - Routine Lymphatic Exam Lymphatic: Absent: lymphedema - Routine Psychiatric Exam Present: cooperative Results - Labs CBC & Chem 7: 01/24/18 14:30 01/24/18 14:30 Assessment and Plan Assessment and Plan: Assessment: Dementia with behavioral disturbance. Heart murmur, 2/6 systolic - unspecified. B12 deficiency. Plan - 01/30: Overall, Familia is doing well and remains medically stable. He is eager for discharge. B12 low at 286. B12 IM was initiated and converted to oral treatment today. 2/6 systolic murmur noted on initial exam. Patient denies known history of murmur and prior medical records denied murmur. Would recommend further evaluation with PCP following discharge from [facility]. Patient asymptomatic and medically stable. CT head revealed no acute changes, just degenerative changes. Provide safe and supportive environment. Will recheck labs in AM to monitor blood counts, electrolytes and renal function. Resuscitation Status: Full Code - Time spent with patient Time with patient PN: 25 minutes - Physician Narrative Physician: Briseida Licea MD Narrative: Date: 01/30/18 Time: 1319 Hospital Course Summary Disclaimer: The visit summary below is not to be considered part of the above Progress Note. Hospital Course: Plan - 01/25/18: Agree with admission to [facility] unit for further psychiatric evaluation and treatment. Hospitalist service consulted for medical management. Patient is reportedly a very healthy 82 year old. Will monitor blood pressure closely. Labs on admission were unremarkable. TSH from 04/22/17 was 1.51. Will complete [facility] admission evaluation and obtain TSH and B12. Given behavioral changes, will also obtain CT. CXR unremarkable. 2/6 systolic murmur noted on exam. Patient denies known history of murmur and prior medical records denied murmur. Patient is medically stable and asymptomatic. Would recommend further evaluation with PCP following discharge from [facility]. Continue home medications. Provide safe and supportive environment. Upon discharge, patient's care will be returned to his PCP, Dr. Alberto. 01/25/18 Psych: Continue home medications. 01/26/18 Psych note- Pt remains pleasant but confused. Continue current care 01/27/18 Psych: Will contact family re: starting antidepressant, antipsychotic to target delusions. Will order TRISTON to better understand placement needs. Will order Vitamin B12 IM 1000mcg x 3 days, then weekly x 1 month, then monthly thereafter. 01/28/18 Psych: Continue current care, monitoring response to low-dose Risperdal. Risks/benefits of antipsychotic use in dementia discussed with DPOA prior to initiation and informed consent obtained. Plan - 01/30: Overall, Familia is doing well and remains medically stable. He is eager for discharge. B12 low at 286. B12 IM was initiated and converted to oral treatment today. 2/6 systolic murmur noted on initial exam. Patient denies known history of murmur and prior medical records denied murmur. Would recommend further evaluation with PCP following discharge from [facility]. Patient asymptomatic and medically stable. CT head revealed no acute changes, just degenerative changes. Provide safe and supportive environment. Will recheck labs in AM to monitor blood counts, electrolytes and renal function.
[2018-01-30] MEDS: MIRTAZAPINE 15 MG TABLET PO SCH (20:25)
[2018-01-30] MEDS: DONEPEZIL 5 MG TABLET PO SCH (20:25)
[2018-01-31] MEDS: MEMANTINE 10 MG TABLET PO SCH (08:34)
[2018-01-31] MEDS: CYANOCOBALAMIN (B-12) 500mcg TABLET PO SCH (08:34)
--- NOTE | 2018-01-31 11:17 | Neuropsych Progress Note ---
[facility] Subjective Date: 01/31/18 - Sujective/Severity of Illness Medications: Cyanocobalamin (Vit. B-12) 1,000 mcg PO DAILY [facility] Last Admin: 01/31/18 08:34 Dose: 1,000 mcg Donepezil HCl (Aricept 5 Mg) 5 mg PO HS [facility] Last Admin: 01/30/18 20:25 Dose: 5 mg Haloperidol (Haldol) 0.5 mg PO Q6H PRN PRN Reason: Extreme agitation Haloperidol Lactate (Haldol) 0.5 mg IM Q6H PRN PRN Reason: Extreme agitation Lorazepam (Ativan) 0.5 mg PO Q6H PRN PRN Reason: Extreme agitation Last Admin: 01/25/18 13:29 Dose: 0.5 mg Lorazepam (Ativan Inj) 0.5 mg IM Q6H PRN PRN Reason: Extreme agitation Magnesium Hydroxide (Mom) 30 ml PO DAILY PRN PRN Reason: Constipation Last Admin: 01/28/18 17:36 Dose: 30 ml Memantine (Namenda) 10 mg PO DAILY [facility] Last Admin: 01/31/18 08:34 Dose: 10 mg Mirtazapine (Remeron) 15 mg PO HS [facility] Last Admin: 01/30/18 20:25 Dose: 15 mg Risperidone (Risperdal) 0.5 mg PO 18 [facility] Last Admin: 01/30/18 17:23 Dose: 0.5 mg Subjective: Patient seen and chart reviewed. Case discussed with treatment team. On interview, patient is pleasant and cooperative. He states that he is "having problems with his family" and it mostly relates to the recommendation for placement. He feels like they are upset with him and he doesn't understand why. Responds well to reassurance. He discusses his and concern she may leave him but does not mention infidelity. Patient continues to have intermittent anxiety and mild agitation related to confusion and frustration with family as above. Patient denies any SI, HI or AVH. Patient denies any adverse side effects related to psychotropic medications. Family visited patient today which seemed to go well. Patient has been adherent with medications and has been participating in group. Patient slept 8.25 hours overnight. VSS. Patient is eating well. Psychotropic PRNs required in the past 24 hours: none. Start Time: 11:40 Stop Time: 12:00 Mental Status Exam Vitals: Last Vital Signs Temp 98.2 F 01/31/18 08:00 Pulse 107 H 01/31/18 08:00 Resp 16 01/31/18 08:00 BP 153/71 H 01/31/18 08:00 Pulse Ox 96 01/31/18 08:00 Height: 1.7 m Weight: 72.5 kg - Mental Status Exam Muscle Strength/Tone: Normal Dressing: Casual Grooming: Good Attitude: Cooperative Motor Activity: Normal Eye Contact: Good Speech: Normal Volume: Normal Rhythm: Appropriate Rhythm Orientation: Oriented to person, Oriented to place Mood: Neutral (mild mood lability on unit, relaxed during interview) Rate of Thoughts: Delayed Thought Organization: Perseverations (on why he needs placement, if his family abandoned him or is upset with him), Confused Associations: Intact Abstract Reasoning: Poor abstract reasoning Thought Content: Delusions (about 's infidelity, decreased in intensity since admission), Ruminations (intermittent) Perception/Psychotic: Other (Delusions as above, denies AVH and none apparent) Language: Naming Intact Fund of Knowledge: Poor fund of knowledge Memory: Poor-immediate, Poor-recent Suicidal Ideation: Denies Homicidal Ideation: Denies Insight: Poor Judgement: Poor Impulse Control: Other (Limited) - Laboratory Result Diagrams: 01/31/18 06:58 01/31/18 06:58 Laboratory Results - last 24 hr 01/31/18 01/31/18 01/31/18 06:58 06:58 06:58 WBC 5.9 RBC 4.79 Hgb 14.0 Hct 44.2 MCV 92.3 MCH 29.2 MCHC 31.7 RDW Std Deviation 44.3 Plt Count 185 MPV 9.4 Immature Gran % (Auto) 0.5 Neut % (Auto) 53.3 Lymph % (Auto) 29.0 Dickens % (Auto) 8.4 Eos % (Auto) 6.9 H Baso % (Auto) 1.9 Neut # (Auto) 3.2 Lymph # (Auto) 1.7 Dickens # (Auto) 0.5 Eos # (Auto) 0.4 Baso # (Auto) 0.1 Abs Immat Gran (auto) 0.03 Turbidity < 20 Sodium 143 Potassium 4.9 Chloride 104 Carbon Dioxide 28 Anion Gap 11 BUN 28.0 H Creatinine 1.1 GFR Calculation 64 BUN/Creatinine Ratio 26 Glucose 108 Hemoglobin A1c 6.2 H Calculated Osmolality 282 H Calcium 9.0 Icterus Index < 2 Specimen Hemolysis < 15 Assessment and Plan (1) 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 B12 deficiency Current visit: Yes Status: Acute Increase Risperdal to 0.5mg PO BID to target daytime anxiety and agitation. Hospital Course Summary Disclaimer: The visit summary below is not to be considered part of the above Progress Note. Hospital Course: Plan - 01/25/18: Agree with admission to [facility] unit for further psychiatric evaluation and treatment. Hospitalist service consulted for medical management. Patient is reportedly a very healthy 82 year old. Will monitor blood pressure closely. Labs on admission were unremarkable. TSH from 04/22/17 was 1.51. Will complete [facility] admission evaluation and obtain TSH and B12. Given behavioral changes, will also obtain CT. CXR unremarkable. 2/6 systolic murmur noted on exam. Patient denies known history of murmur and prior medical records denied murmur. Patient is medically stable and asymptomatic. Would recommend further evaluation with PCP following discharge from [facility]. Continue home medications. Provide safe and supportive environment. Upon discharge, patient's care will be returned to his PCP, Dr. Alberto. 01/25/18 Psych: Continue home medications. 01/26/18 Psych note- Pt remains pleasant but confused. Continue current care 01/27/18 Psych: Will contact family re: starting antidepressant, antipsychotic to target delusions. Will order TRISTON to better understand placement needs. Will order Vitamin B12 IM 1000mcg x 3 days, then weekly x 1 month, then monthly thereafter. 01/28/18 Psych: Continue current care, monitoring response to low-dose Risperdal. Risks/benefits of antipsychotic use in dementia discussed with DPOA prior to initiation and informed consent obtained. 01/30/18 Psych: Increase mirtazapine to 15mg PO q HS and increase Risperdal to 0.5mg PO daily at dinnertime. 01/31/18 Psych: Increase Risperdal to 0.5mg PO BID to target daytime anxiety and agitation.
[2018-01-31] MEDS: RisperiDONE 0.5 MG TABLET PO SCH (17:59)
[2018-01-31] MEDS: DONEPEZIL 5 MG TABLET PO SCH (20:40)
[2018-01-31] MEDS: MIRTAZAPINE 15 MG TABLET PO SCH (20:40)
[2018-02-01] MEDS: CYANOCOBALAMIN (B-12) 500mcg TABLET PO SCH (08:26)
[2018-02-01] MEDS: MEMANTINE 10 MG TABLET PO SCH (08:26)
[2018-02-01] MEDS: RisperiDONE 0.5 MG TABLET PO SCH ×2 (08:26→17:27)
--- NOTE | 2018-02-01 10:17 | Neuropsych Progress Note ---
[facility] Subjective Date: 02/01/18 - Sujective/Severity of Illness Medications: Cyanocobalamin (Vit. B-12) 1,000 mcg PO DAILY [facility] Last Admin: 02/01/18 08:26 Dose: 1,000 mcg Donepezil HCl (Aricept 5 Mg) 5 mg PO [facility] Last Admin: 01/31/18 20:40 Dose: 5 mg Haloperidol (Haldol) 0.5 mg PO Q6H PRN PRN Reason: Extreme agitation Haloperidol Lactate (Haldol) 0.5 mg IM Q6H PRN PRN Reason: Extreme agitation Lorazepam (Ativan) 0.5 mg PO Q6H PRN PRN Reason: Extreme agitation Last Admin: 01/25/18 13:29 Dose: 0.5 mg Lorazepam (Ativan Inj) 0.5 mg IM Q6H PRN PRN Reason: Extreme agitation Magnesium Hydroxide (Mom) 30 ml PO DAILY PRN PRN Reason: Constipation Last Admin: 01/28/18 17:36 Dose: 30 ml Memantine (Namenda) 10 mg PO DAILY [facility] Last Admin: 02/01/18 08:26 Dose: 10 mg Mirtazapine (Remeron) 15 mg PO [facility] Last Admin: 01/31/18 20:40 Dose: 15 mg Risperidone (Risperdal) 0.5 mg PO [facility] Last Admin: 02/01/18 08:26 Dose: 0.5 mg Subjective: Patient seen and chart reviewed. Nursing reports pt is doing well. Sleeping well and has a good appetite. No behaviors noted. On face to face the pt is pleasant but confused. has very poor short term memory. States he is not sure why he is here and where he will be going at [place]. Mood stable. Tolerating meds Start Time: 09:15 Stop Time: 09:30 Mental Status Exam Vitals: Last Vital Signs Temp 98.0 F 02/01/18 08:00 Pulse 104 H 02/01/18 08:00 Resp 18 02/01/18 08:00 BP 143/81 H 02/01/18 08:00 Pulse Ox 96 02/01/18 08:00 Height: 1.7 m Weight: 73 kg - Mental Status Exam Muscle Strength/Tone: Normal Dressing: Casual Grooming: Good Attitude: Cooperative Motor Activity: Normal Eye Contact: Good Speech: Normal Volume: Normal Rhythm: Appropriate Rhythm Orientation: Oriented to person, Oriented to place Mood: Neutral (mild mood lability on unit, relaxed during interview) Rate of Thoughts: Delayed Thought Organization: Perseverations (on why he needs placement, if his family abandoned him or is upset with him), Confused Associations: Intact Abstract Reasoning: Poor abstract reasoning Thought Content: Delusions (about 's infidelity, decreased in intensity since admission), Ruminations (intermittent) Perception/Psychotic: Other (Delusions as above, denies AVH and none apparent) Language: Naming Intact Fund of Knowledge: Poor fund of knowledge Memory: Poor-immediate, Poor-recent Suicidal Ideation: Denies Homicidal Ideation: Denies Insight: Poor Judgement: Poor Impulse Control: Other (Limited) - Laboratory Result Diagrams: 01/31/18 06:58 01/31/18 06:58 Assessment and Plan (1) 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 B12 deficiency Current visit: Yes Status: Acute Hospital Course Summary Disclaimer: The visit summary below is not to be considered part of the above Progress Note. Hospital Course: Plan - 01/25/18: Agree with admission to [facility] unit for further psychiatric evaluation and treatment. Hospitalist service consulted for medical management. Patient is reportedly a very healthy 82 year old. Will monitor blood pressure closely. Labs on admission were unremarkable. TSH from 04/22/17 was 1.51. Will complete [facility] admission evaluation and obtain TSH and B12. Given behavioral changes, will also obtain CT. CXR unremarkable. 2/6 systolic murmur noted on exam. Patient denies known history of murmur and prior medical records denied murmur. Patient is medically stable and asymptomatic. Would recommend further evaluation with PCP following discharge from [facility]. Continue home medications. Provide safe and supportive environment. Upon discharge, patient's care will be returned to his PCP, Dr. Alberto. 01/25/18 Psych: Continue home medications. 01/26/18 Psych note- Pt remains pleasant but confused. Continue current care 01/27/18 Psych: Will contact family re: starting antidepressant, antipsychotic to target delusions. Will order TRISTON to better understand placement needs. Will order Vitamin B12 IM 1000mcg x 3 days, then weekly x 1 month, then monthly thereafter. 01/28/18 Psych: Continue current care, monitoring response to low-dose Risperdal. Risks/benefits of antipsychotic use in dementia discussed with DPOA prior to initiation and informed consent obtained. 01/30/18 Psych: Increase mirtazapine to 15mg PO q HS and increase Risperdal to 0.5mg PO daily at dinnertime. 01/31/18 Psych: Increase Risperdal to 0.5mg PO BID to target daytime anxiety and agitation. 02/01/19 Psych- Continue current care
[2018-02-01] MEDS: MIRTAZAPINE 15 MG TABLET PO SCH (20:42)
[2018-02-01] MEDS: DONEPEZIL 5 MG TABLET PO SCH (20:42)
[2018-02-02] MEDS: CYANOCOBALAMIN (B-12) 500mcg TABLET PO SCH (08:35)
[2018-02-02] MEDS: MEMANTINE 10 MG TABLET PO SCH (08:35)
[2018-02-02] MEDS: RisperiDONE 0.5 MG TABLET PO SCH ×2 (08:35→17:28)
--- NOTE | 2018-02-02 10:02 | Neuropsych Progress Note ---
[facility] Subjective Date: 02/02/18 - Sujective/Severity of Illness Medications: Cyanocobalamin (Vit. B-12) 1,000 mcg PO DAILY [facility] Last Admin: 02/02/18 08:35 Dose: 1,000 mcg Donepezil HCl (Aricept 5 Mg) 5 mg PO [facility] Last Admin: 02/01/18 20:42 Dose: 5 mg Haloperidol (Haldol) 0.5 mg PO Q6H PRN PRN Reason: Extreme agitation Haloperidol Lactate (Haldol) 0.5 mg IM Q6H PRN PRN Reason: Extreme agitation Lorazepam (Ativan) 0.5 mg PO Q6H PRN PRN Reason: Extreme agitation Last Admin: 01/25/18 13:29 Dose: 0.5 mg Lorazepam (Ativan Inj) 0.5 mg IM Q6H PRN PRN Reason: Extreme agitation Magnesium Hydroxide (Mom) 30 ml PO DAILY PRN PRN Reason: Constipation Last Admin: 01/28/18 17:36 Dose: 30 ml Memantine (Namenda) 10 mg PO DAILY [facility] Last Admin: 02/02/18 08:35 Dose: 10 mg Mirtazapine (Remeron) 15 mg PO [facility] Last Admin: 02/01/18 20:42 Dose: 15 mg Risperidone (Risperdal) 0.5 mg PO [facility] Last Admin: 02/02/18 08:35 Dose: 0.5 mg Subjective: Patient seen and chart reviewed. Nursing reports pt is doing well. Sleeping well and has a good appetite. No behaviors noted. On face to face the pt states he is doing well. Has very poor short term memory. He states he believes his family is going to put him in a [facility] but states he would like to go home. Denies S /I. Tolerating meds Start Time: 09:15 Stop Time: 09:30 Mental Status Exam Vitals: Last Vital Signs Temp 97.4 F 02/02/18 08:00 Pulse 101 H 02/02/18 08:00 Resp 18 02/02/18 08:00 BP 146/86 H 02/02/18 08:00 Pulse Ox 96 02/02/18 08:00 Height: 1.7 m Weight: 73 kg - Mental Status Exam Muscle Strength/Tone: Normal Dressing: Casual Grooming: Good Attitude: Cooperative Motor Activity: Normal Eye Contact: Good Speech: Normal Volume: Normal Rhythm: Appropriate Rhythm Orientation: Oriented to person, Oriented to place Mood: Neutral (mild mood lability on unit, relaxed during interview) Rate of Thoughts: Delayed Thought Organization: Perseverations (on why he needs placement, if his family abandoned him or is upset with him), Confused Associations: Intact Abstract Reasoning: Poor abstract reasoning Thought Content: Delusions (about 's infidelity, decreased in intensity since admission), Ruminations (intermittent) Perception/Psychotic: Other (Delusions as above, denies AVH and none apparent) Language: Naming Intact Fund of Knowledge: Poor fund of knowledge Memory: Poor-immediate, Poor-recent Suicidal Ideation: Denies Homicidal Ideation: Denies Insight: Poor Judgement: Poor Impulse Control: Other (Limited) - Laboratory Result Diagrams: 01/31/18 06:58 01/31/18 06:58 Assessment and Plan (1) 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 B12 deficiency Current visit: Yes Status: Acute Hospital Course Summary Disclaimer: The visit summary below is not to be considered part of the above Progress Note. Hospital Course: Plan - 01/25/18: Agree with admission to [facility] unit for further psychiatric evaluation and treatment. Hospitalist service consulted for medical management. Patient is reportedly a very healthy 82 year old. Will monitor blood pressure closely. Labs on admission were unremarkable. TSH from 04/22/17 was 1.51. Will complete [facility] admission evaluation and obtain TSH and B12. Given behavioral changes, will also obtain CT. CXR unremarkable. 2/6 systolic murmur noted on exam. Patient denies known history of murmur and prior medical records denied murmur. Patient is medically stable and asymptomatic. Would recommend further evaluation with PCP following discharge from [facility]. Continue home medications. Provide safe and supportive environment. Upon discharge, patient's care will be returned to his PCP, Dr. Alberto. 01/25/18 Psych: Continue home medications. 01/26/18 Psych note- Pt remains pleasant but confused. Continue current care 01/27/18 Psych: Will contact family re: starting antidepressant, antipsychotic to target delusions. Will order TRISTON to better understand placement needs. Will order Vitamin B12 IM 1000mcg x 3 days, then weekly x 1 month, then monthly thereafter. 01/28/18 Psych: Continue current care, monitoring response to low-dose Risperdal. Risks/benefits of antipsychotic use in dementia discussed with DPOA prior to initiation and informed consent obtained. 01/30/18 Psych: Increase mirtazapine to 15mg PO q HS and increase Risperdal to 0.5mg PO daily at dinnertime. 01/31/18 Psych: Increase Risperdal to 0.5mg PO BID to target daytime anxiety and agitation. 02/01/19 Psych- Continue current care 02/02/18 psych note- Continue current care
[2018-02-02] MEDS: DONEPEZIL 5 MG TABLET PO SCH (20:14)
[2018-02-02] MEDS: MIRTAZAPINE 15 MG TABLET PO SCH (20:14)
--- NOTE | 2018-02-03 09:36 | Neuropsych Progress Note ---
[facility] Subjective Date: 02/03/18 - Sujective/Severity of Illness Medications: Cyanocobalamin (Vit. B-12) 1,000 mcg PO DAILY [facility] Last Admin: 02/02/18 08:35 Dose: 1,000 mcg Donepezil HCl (Aricept 5 Mg) 5 mg PO [facility] Last Admin: 02/02/18 20:14 Dose: 5 mg Haloperidol (Haldol) 0.5 mg PO Q6H PRN PRN Reason: Extreme agitation Haloperidol Lactate (Haldol) 0.5 mg IM Q6H PRN PRN Reason: Extreme agitation Lorazepam (Ativan) 0.5 mg PO Q6H PRN PRN Reason: Extreme agitation Last Admin: 01/25/18 13:29 Dose: 0.5 mg Lorazepam (Ativan Inj) 0.5 mg IM Q6H PRN PRN Reason: Extreme agitation Magnesium Hydroxide (Mom) 30 ml PO DAILY PRN PRN Reason: Constipation Last Admin: 01/28/18 17:36 Dose: 30 ml Memantine (Namenda) 10 mg PO DAILY [facility] Last Admin: 02/02/18 08:35 Dose: 10 mg Mirtazapine (Remeron) 15 mg PO [facility] Last Admin: 02/02/18 20:14 Dose: 15 mg Risperidone (Risperdal) 0.5 mg PO [facility] Last Admin: 02/02/18 17:28 Dose: 0.5 mg Subjective: Patient seen and chart reviewed. Case discussed with treatment team. On interview, patient is obviously processing need for placement and life change , but has a positive outlook. He can't remember all the times his children have visited but responds well to gentle reminders and redirection. He states, " Thing have to happen. That's just life, and I try to make the best of it... If life causes problems, you just have to take it easy and go through them. This place has helped me a lot." He speaks positively of his grown children and laughs about his son "tricking him" into admission. Patient denies any SI, HI or AVH. Patient denies any adverse side effects related to psychotropic medications. Nursing staff report patient has been pleasant and cooperative, without any behavioral difficulties on the unit. Patient has been adherent with medications. Patient slept 7.5 hours overnight. VSS. Patient is eating well. Psychotropic PRNs required in the past 24 hours: none. Start Time: 09:20 Stop Time: 09:40 Mental Status Exam Vitals: Last Vital Signs Temp 78.0 F L 02/03/18 07:56 Pulse 98 02/03/18 07:56 Resp 20 02/03/18 07:56 BP 159/84 H 02/03/18 07:56 Pulse Ox 97 02/03/18 07:56 Height: 1.7 m Weight: 73 kg - Mental Status Exam Muscle Strength/Tone: Normal Dressing: Casual Grooming: Good Attitude: Cooperative Motor Activity: Normal Eye Contact: Good Speech: Normal Volume: Normal Rhythm: Appropriate Rhythm Orientation: Oriented to person, Oriented to place Mood: Euthymic Affect: Relaxed Rate of Thoughts: Delayed Thought Organization: Circumstantial, Confused (at times) Associations: Intact Abstract Reasoning: Intact, able to abstract Thought Content: Normal Perception/Psychotic: Hx psychosis, not current (delusions only) Language: Naming Intact Fund of Knowledge: Poor fund of knowledge Memory: Poor-immediate, Poor-recent Suicidal Ideation: Denies Homicidal Ideation: Denies Insight: Impaired Judgement: Impaired Impulse Control: Fair - Laboratory Result Diagrams: 01/31/18 06:58 01/31/18 06:58 Assessment and Plan (1) 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 B12 deficiency Current visit: Yes Status: Acute Patient is doing well. SW is working on arrangements for placement and safe discharge plan with family and facility. Hospital Course Summary Disclaimer: The visit summary below is not to be considered part of the above Progress Note. Hospital Course: Plan - 01/25/18: Agree with admission to [facility] unit for further psychiatric evaluation and treatment. Hospitalist service consulted for medical management. Patient is reportedly a very healthy 82 year old. Will monitor blood pressure closely. Labs on admission were unremarkable. TSH from 04/22/17 was [address] Will complete [facility] admission evaluation and obtain TSH and B12. Given behavioral changes, will also obtain CT. CXR unremarkable. 2/6 systolic murmur noted on exam. Patient denies known history of murmur and prior medical records denied murmur. Patient is medically stable and asymptomatic. Would recommend further evaluation with PCP following discharge from [facility]. Continue home medications. Provide safe and supportive environment. Upon discharge, patient's care will be returned to his PCP, Dr. Alberto. 01/25/18 Psych: Continue home medications. 01/26/18 Psych note- Pt remains pleasant but confused. Continue current care 01/27/18 Psych: Will contact family re: starting antidepressant, antipsychotic to target delusions. Will order TRISTON to better understand placement needs. Will order Vitamin B12 IM 1000mcg x 3 days, then weekly x 1 month, then monthly thereafter. 01/28/18 Psych: Continue current care, monitoring response to low-dose Risperdal. Risks/benefits of antipsychotic use in dementia discussed with DPOA prior to initiation and informed consent obtained. 01/30/18 Psych: Increase mirtazapine to 15mg PO q HS and increase Risperdal to 0.5mg PO daily at dinnertime. 01/31/18 Psych: Increase Risperdal to 0.5mg PO BID to target daytime anxiety and agitation. 02/01/19 Psych- Continue current care 02/02/18 psych note- Continue current care. 02/03/18 Psych: Patient is doing well. SW is working on arrangements for placement and safe discharge plan with family and facility.
[2018-02-03] MEDS: CYANOCOBALAMIN (B-12) 500mcg TABLET PO SCH (09:38)
[2018-02-03] MEDS: MEMANTINE 10 MG TABLET PO SCH (09:38)
[2018-02-03] MEDS: RisperiDONE 0.5 MG TABLET PO SCH ×2 (09:38→17:31)
--- NOTE | 2018-02-03 11:06 | Progress Note ---
- Date 02/03/18 Subjective: Familia is seen while sitting in the day room listening to music. He reports that he is doing well and denies any complaints or concerns. His appetite remains stable and and bowels are moving. Risperdal was increased on 01/31 with no noted behaviors. Anticipate discharge in near future. Objective Vital signs: Temperature 78.0 F L 02/03/18 07:56 Pulse Rate 98 02/03/18 07:56 Respiratory Rate 20 02/03/18 07:56 Blood Pressure 159/84 H 02/03/18 07:56 Pulse Oximetry 97 02/03/18 07:56 Height/Weight/BMI: Height 5 ft 7 in Weight 160 lb 14.999 oz Body Mass Index 25.0 Comments: Sitting in day room, listening to music. - Constitutional Present: no acute distress, well nourished, well developed, cooperative - Routine HEENT Exam Head: Present: normocephalic, atraumatic Eye: Present: PERRL ENT: Present: mucous membranes moist, oropharynx clear - Routine Respiratory Exam Present: CTA bilaterally. Absent: respiratory distress, wheezes - Routine Cardiovascular Exam Present: RRR, S1, S2, murmur - Routine Abdominal Exam Present: soft, normoactive bowel sounds, non distended, non tender - Routine Extremities Exam Present: no edema, full ROM, pulses intact - Routine Back/Spine/Pelvis Exam Back/Spine: Present: full ROM. Absent: vertebral tenderness - Routine Musculoskeletal Exam Musculoskeletal: Present: no clubbing or cyanosis, moving extremities well - Routine Skin Exam Present: intact, dry, warm - Routine Neurological Exam Present: alert, moving all extremities, hearing grossly intact, normal speech - Routine Lymphatic Exam Lymphatic: Absent: lymphedema - Routine Psychiatric Exam Present: cooperative Results - Labs CBC & Chem 7: 01/31/18 06:58 01/31/18 06:58 Assessment and Plan Assessment and Plan: Assessment: Dementia with behavioral disturbance. Heart murmur, 2/6 systolic - unspecified. B12 deficiency. Plan - 02/03 Overall, Familia is doing well and remains medically stable. He is eager for discharge. Continue psychiatric cares. Risperdal increased on 01/31 without behaviors. Continue B12 supplementation. 2/6 systolic murmur noted on initial exam. Patient denies known history of murmur and prior medical records denied murmur. Would recommend further evaluation with PCP following discharge from [facility]. Patient asymptomatic and medically stable. Continue to provide safe and supportive environment. Resuscitation Status: Full Code - Time spent with patient Time with patient PN: 25 minutes - Physician Narrative Physician: other (Dr. Awan) Narrative: Date: 02/03/18 Time: 1102 Hospital Course Summary Disclaimer: The visit summary below is not to be considered part of the above Progress Note. Hospital Course: Plan - 01/25/18: Agree with admission to [facility] unit for further psychiatric evaluation and treatment. Hospitalist service consulted for medical management. Patient is reportedly a very healthy 82 year old. Will monitor blood pressure closely. Labs on admission were unremarkable. TSH from 04/22/17 was 1.51. Will complete [facility] admission evaluation and obtain TSH and B12. Given behavioral changes, will also obtain CT. CXR unremarkable. 2/6 systolic murmur noted on exam. Patient denies known history of murmur and prior medical records denied murmur. Patient is medically stable and asymptomatic. Would recommend further evaluation with PCP following discharge from [facility]. Continue home medications. Provide safe and supportive environment. Upon discharge, patient's care will be returned to his PCP, Dr. Alberto. 01/25/18 Psych: Continue home medications. 01/26/18 Psych note- Pt remains pleasant but confused. Continue current care 01/27/18 Psych: Will contact family re: starting antidepressant, antipsychotic to target delusions. Will order TRISTON to better understand placement needs. Will order Vitamin B12 IM 1000mcg x 3 days, then weekly x 1 month, then monthly thereafter. 01/28/18 Psych: Continue current care, monitoring response to low-dose Risperdal. Risks/benefits of antipsychotic use in dementia discussed with DPOA prior to initiation and informed consent obtained. 01/30/18 Psych: Increase mirtazapine to 15mg PO q HS and increase Risperdal to 0.5mg PO daily at dinnertime. 01/31/18 Psych: Increase Risperdal to 0.5mg PO BID to target daytime anxiety and agitation. 02/01/19 Psych- Continue current care 02/02/18 psych note- Continue current care Plan - 02/03 Overall, Familia is doing well and remains medically stable. He is eager for discharge. Continue psychiatric cares. Risperdal increased on 01/31 without behaviors. Continue B12 supplementation. 2/6 systolic murmur noted on initial exam. Patient denies known history of murmur and prior medical records denied murmur. Would recommend further evaluation with PCP following discharge from [facility]. Patient asymptomatic and medically stable. Continue to provide safe and supportive environment.
[2018-02-03] MEDS: MIRTAZAPINE 15 MG TABLET PO SCH (21:05)
[2018-02-03] MEDS: DONEPEZIL 5 MG TABLET PO SCH (21:05)
--- NOTE | 2018-02-04 09:04 | Neuropsych Progress Note ---
[facility] Subjective Date: 02/04/18 - Sujective/Severity of Illness Medications: Cyanocobalamin (Vit. B-12) 1,000 mcg PO DAILY [facility] Last Admin: 02/03/18 09:38 Dose: 1,000 mcg Donepezil HCl (Aricept 5 Mg) 5 mg PO HS [facility] Last Admin: 02/03/18 21:05 Dose: 5 mg Haloperidol (Haldol) 0.5 mg PO Q6H PRN PRN Reason: Extreme agitation Haloperidol Lactate (Haldol) 0.5 mg IM Q6H PRN PRN Reason: Extreme agitation Lorazepam (Ativan) 0.5 mg PO Q6H PRN PRN Reason: Extreme agitation Last Admin: 01/25/18 13:29 Dose: 0.5 mg Lorazepam (Ativan Inj) 0.5 mg IM Q6H PRN PRN Reason: Extreme agitation Magnesium Hydroxide (Mom) 30 ml PO DAILY PRN PRN Reason: Constipation Last Admin: 01/28/18 17:36 Dose: 30 ml Memantine (Namenda) 10 mg PO DAILY [facility] Last Admin: 02/03/18 09:38 Dose: 10 mg Mirtazapine (Remeron) 15 mg PO [facility] Last Admin: 02/03/18 21:05 Dose: 15 mg Risperidone (Risperdal) 0.5 mg PO [facility] Last Admin: 02/03/18 17:31 Dose: 0.5 mg Subjective: Patient seen and chart reviewed. Case discussed with treatment team. On interview, patient is pleasant and cooperative. He reports his mood is good and he is eager to discharge, even if it to placement rather than home. Patient denies any SI, HI or AVH. Patient denies any adverse side effects related to psychotropic medications. Nursing staff report patient has been pleasant and cooperative, without any behavioral difficulties on the unit though he did have some difficulty completing shower by himself this morning. Patient has been adherent with medications. Patient slept 7.5 hours overnight. VSS. Patient is eating well. Psychotropic PRNs required in the past 24 hours: none. Start Time: 10:00 Stop Time: 10:20 Mental Status Exam Vitals: Last Vital Signs Temp 98.3 F 02/03/18 21:01 Pulse 100 02/03/18 21:01 Resp 16 02/03/18 21:01 BP 123/65 02/03/18 21:01 Pulse Ox 98 02/03/18 21:01 Height: 1.7 m Weight: 72.6 kg - Mental Status Exam Muscle Strength/Tone: Normal Dressing: Casual Grooming: Good Attitude: Cooperative Motor Activity: Normal Eye Contact: Good Speech: Normal Volume: Normal Rhythm: Appropriate Rhythm Orientation: Oriented to person, Oriented to place Mood: Euthymic Affect: Relaxed Rate of Thoughts: Delayed Thought Organization: Circumstantial, Confused (at times) Associations: Intact Abstract Reasoning: Intact, able to abstract Thought Content: Normal Perception/Psychotic: Hx psychosis, not current (delusions only) Language: Naming Intact Fund of Knowledge: Poor fund of knowledge Memory: Poor-immediate, Poor-recent Suicidal Ideation: Denies Homicidal Ideation: Denies Insight: Impaired Judgement: Impaired Impulse Control: Fair - Laboratory Result Diagrams: 01/31/18 06:58 01/31/18 06:58 Assessment and Plan (1) 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 B12 deficiency Current visit: Yes Status: Acute Will repeat UA due to concern for increased confusion this morning. Will plan for d/c to facility in AM on 02/05. Hospital Course Summary Disclaimer: The visit summary below is not to be considered part of the above Progress Note. Hospital Course: Plan - 01/25/18: Agree with admission to [facility] unit for further psychiatric evaluation and treatment. Hospitalist service consulted for medical management. Patient is reportedly a very healthy 82 year old. Will monitor blood pressure closely. Labs on admission were unremarkable. TSH from 04/22/17 was 1.51. Will complete [facility] admission evaluation and obtain TSH and B12. Given behavioral changes, will also obtain CT. CXR unremarkable. 2/6 systolic murmur noted on exam. Patient denies known history of murmur and prior medical records denied murmur. Patient is medically stable and asymptomatic. Would recommend further evaluation with PCP following discharge from [facility]. Continue home medications. Provide safe and supportive environment. Upon discharge, patient's care will be returned to his PCP, Dr. Alberto. 01/25/18 Psych: Continue home medications. 01/26/18 Psych note- Pt remains pleasant but confused. Continue current care 01/27/18 Psych: Will contact family re: starting antidepressant, antipsychotic to target delusions. Will order TRISTON to better understand placement needs. Will order Vitamin B12 IM 1000mcg x 3 days, then weekly x 1 month, then monthly thereafter. 01/28/18 Psych: Continue current care, monitoring response to low-dose Risperdal. Risks/benefits of antipsychotic use in dementia discussed with DPOA prior to initiation and informed consent obtained. 01/30/18 Psych: Increase mirtazapine to 15mg PO q HS and increase Risperdal to 0.5mg PO daily at dinnertime. 01/31/18 Psych: Increase Risperdal to 0.5mg PO BID to target daytime anxiety and agitation. 02/01/19 Psych- Continue current care 02/02/18 psych note- Continue current care. 02/03/18 Psych: Patient is doing well. SW is working on arrangements for placement and safe discharge plan with family and facility. 02/04/18 Psych: Will repeat UA due to concern for increased confusion this morning. Will plan for d/c to facility in AM on 02/05.
[2018-02-04] MEDS: CYANOCOBALAMIN (B-12) 500mcg TABLET PO SCH (09:38)
[2018-02-04] MEDS: MEMANTINE 10 MG TABLET PO SCH (09:38)
[2018-02-04] MEDS: RisperiDONE 0.5 MG TABLET PO SCH ×2 (09:38→17:18)
--- NOTE | 2018-02-04 11:48 | Neuropsychiatric Disch Summary ---
Discharge Information Date of admission: 01/24/18 15:16 Attending Physician: Jami Holm MD Primary care physician: [facility] Consults: 01/24/18 15:46 Case Management Consult [CONS] Routine Reason For Exam: Medical comorbidities Physician Consult [CONS] Routine Consulting Provider: Juan Pablo Ardon Reason For Exam: Medical comorbidities Ordering Provider has Notified [employer]: No Comment: Nursing please notify - Discharge Diagnosis (1) Major neurocognitive disorder Status: Acute - Laboratory Labs: 01/31/18 06:58 01/31/18 06:58 Date of Admission: 01/24/18 15:16 History of Present Illness: HPI: 82 Y/O CM BB family for increasing memory impairment and agitation. Family reports the pt has been verbally aggressive and delusional at times believing his is cheating on him. Family reports a functional decline in cognition over the last twelve months. On face to face the pt is pleasant but confused. He is oriented x 2. he states he is not sure why he is here. he states his is living with his daughter due to health reasons and "I think they are trying to get rid of me". STRESSORS: has been having health issues. Believes his family is trying to get rid of him. PSYCH ROS: Pt reports dealing with some depression but feels it is mild and related to his current situation. He reprots he worries about what will happen with his and him. He denies any jolly or psychosis. PAST PSYCH: Pt is not a good historian but he denies any past psych care. he is currently on Aricept and Namenda. SUBSTANCE ABUSE: Denies SOCIAL HX: Born in [place]. HS grad with some college. 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 Hospital Course This is a general summary of the patient's hospital course. For more details refer to the complete medical record. Hospital course: Plan - 01/25/18: Agree with admission to [facility] for further psychiatric evaluation and treatment. Hospitalist service consulted for medical management. Patient is reportedly a very healthy 82 year old. Will monitor blood pressure closely. Labs on admission were unremarkable. TSH from 04/22/17 was 1.51. Will complete [facility] admission evaluation and obtain TSH and B12. Given behavioral changes, will also obtain CT. CXR unremarkable. 2/6 systolic murmur noted on exam. Patient denies known history of murmur and prior medical records denied murmur. Patient is medically stable and asymptomatic. Would recommend further evaluation with PCP following discharge from [facility]. Continue home medications. Provide safe and supportive environment. Upon discharge, patient's care will be returned to his PCP, Dr. Alberto. 01/25/18 Psych: Continue home medications. 01/26/18 Psych note- Pt remains pleasant but confused. Continue current care 01/27/18 Psych: Will contact family re: starting antidepressant, antipsychotic to target delusions. Will order TRISTON to better understand placement needs. Will order Vitamin B12 IM 1000mcg x 3 days, then weekly x 1 month, then monthly thereafter. 01/28/18 Psych: Continue current care, monitoring response to low-dose Risperdal. Risks/benefits of antipsychotic use in dementia discussed with DPOA prior to initiation and informed consent obtained. 01/30/18 Psych: Increase mirtazapine to 15mg PO q HS and increase Risperdal to 0.5mg PO daily at dinnertime. 01/31/18 Psych: Increase Risperdal to 0.5mg PO BID to target daytime anxiety and agitation. 02/01/19 Psych- Continue current care 02/02/18 psych note- Continue current care. 02/03/18 Psych: Patient is doing well. SYBIL is working on arrangements for placement and safe discharge plan with family and facility. 02/04/18 Psych: Will repeat UA due to concern for increased confusion this morning. Will plan for d/c to facility in AM on 02/05. Discharge Plan - Med Rec/Dispo Referrals/Follow Up: Kael Alberto MD [Other] ( [facility]) Additional Instructions: Discharge Diagnosis: Reasons for Admission: Verbally abusive, angers easily, emotional, and believes is having an affair. IN CASE OF PSYCHIATRIC EMERGENCY, CONTACT [facility] STAFF AT [phone] ( available 24 hrs daily) Prescriptions: No Action Donepezil [Aricept 5 mg] 5 mg PO HS Memantine HCl [Namenda Xr] 14 mg PO DAILY
--- NOTE | 2018-02-04 11:53 | Extended Care Facility Orders ---
Admission Orders Admit to:: [facility] Allergies/Adverse Reactions: Allergies No Known Allergies Allergy (Verified 01/24/18 14:21) Admitting Diagnosis: Dementia With Behavioral Disturbance Admitting Physician: Jami Holm MD Attending Physician: Jami Holm MD Code Status: Full Code Anticiapted Length of Stay: greater than 30 days Rehab Potential: fair Rehab Prognosis: fair Diet: 01/24/18 Dinner Regular Diet [DIET] Diet Modifications: May use Facility Protocol or Standing Orders: Yes May have flu vaccine: Yes Evaluations/Treatment: Psychiatric Half-Way Certification: I certify that SNF services are required to be given on an Inpatient basis because of the patients need for retirement care on a continuing basis for the condition(s) for which he/she received inpatient hospital services prior to his/her transfer to the SNF. SNF inpatient care is necessary for the following reasons Indication for Half-Way: Not Applicable - Additional Information In Event of Arrest: Start CPR,call 911,send patient to the ER Resident is Aware of Diagnosis: Yes Referrals: Kael Alberto MD [Other] ( [facility])
[2018-02-04] MEDS: DONEPEZIL 5 MG TABLET PO SCH (20:43)
[2018-02-04] MEDS: MIRTAZAPINE 15 MG TABLET PO SCH (20:43)
[2018-02-05] MEDS: RisperiDONE 0.5 MG TABLET PO SCH (08:16)
[2018-02-05] MEDS: MEMANTINE 10 MG TABLET PO SCH (08:16)
[2018-02-05] MEDS: CYANOCOBALAMIN (B-12) 500mcg TABLET PO SCH (08:16)
[2018-02-05 08:18] VITALS: BP 171/95; PULSE 105; RESP 16; TEMP 96.9; O2SAT 95
== END 2018-02-05 10:20 | DRG 57 ==
LOC: ED 13:56 → GEN 15:16
PROVIDERS: ADMIT Psychiatry & Neurology Psychiatry; ATTEND Psychiatry & Neurology Psychiatry